=== PATIENT | male | born 1965 | race Caucasian/White ===

== ENCOUNTER 2023-08-24 18:39 | Inpatient (IN) ==
--- NOTE | 2023-08-24 19:55 | DR.GENAD ---
HPI Time Seen Time Seen by Provider: 08/24/23 19:54 PCP Primary Care Physician: [facility] in [place] Complaint/Symptoms Chief Complaint:: pt stated he was dx with pneumonia and copd n may has been on breathing treatments. also had shingles in may lessions are dry and he is having severe nerve pain. 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 Source History Provided: Patient Mode of Arrival Mode of Arrival: Ambulatory Timing Onset of Chief Complaint: 07/15/23 PMH PMH Past Medical History: No Past Surgical History: Yes Surgical History: Ortho Surgery Family History History of Family Medical Conditions: Yes Family Medical History: Diabetes Mellitus and PR Social History Does patient currently use any type of tobacco product: No Have you used tobacco products in the last 12 months: No Type of Tobacco Use: None Does any household member use tobacco: No Alcohol Use: Rarely Do you use any recreational Drugs:: No Lives With: Family Lives Where: Home Infectious screening In the last 2 months have you had wt loss of >10#?: NO Have you had fever, night sweats or hemotysis?: No Have you traveled outside the country in the last 6 months?: No Isolation: Standard PE Vital Signs Vitals: Vital Signs Temperature 97.8 F Pulse Rate 97 Pulse Rate 91 Pulse Rate 90 Pulse Rate 92 Pulse Rate 88 Pulse Rate 93 Pulse Rate 89 Pulse Rate 89 Pulse Rate 86 Pulse Rate 85 Pulse Rate 91 Pulse Rate 85 Pulse Rate 90 Pulse Rate 83 Pulse Rate 85 Pulse Rate 88 Pulse Rate 100 Respiratory Rate 23 Respiratory Rate 26 Respiratory Rate 19 Respiratory Rate 20 Respiratory Rate 29 Respiratory Rate 22 Respiratory Rate 11 Respiratory Rate 17 Respiratory Rate 12 Respiratory Rate 18 Respiratory Rate 18 Respiratory Rate 18 Respiratory Rate 27 Respiratory Rate 16 Respiratory Rate 13 Respiratory Rate 26 Respiratory Rate 18 Blood Pressure 129/82 Blood Pressure 129/82 Blood Pressure 131/88 Blood Pressure 125/84 Blood Pressure 130/77 O2 Sat by Pulse Oximetry 99 O2 Sat by Pulse Oximetry 97 O2 Sat by Pulse Oximetry 97 O2 Sat by Pulse Oximetry 96 O2 Sat by Pulse Oximetry 96 O2 Sat by Pulse Oximetry 97 O2 Sat by Pulse Oximetry 91 O2 Sat by Pulse Oximetry 89 O2 Sat by Pulse Oximetry 96 O2 Sat by Pulse Oximetry 96 O2 Sat by Pulse Oximetry 96 O2 Sat by Pulse Oximetry 99 O2 Sat by Pulse Oximetry 98 O2 Sat by Pulse Oximetry 98 O2 Sat by Pulse Oximetry 99 O2 Sat by Pulse Oximetry 98 O2 Sat by Pulse Oximetry 96 ROR Labs Reviewed 08/24/23 19:45 08/24/23 19:45 Laboratory: WBC 12.2 X10^3/uL (3.6-10.0) H 08/24/23 19:45 RBC 4.64 X10^6/uL (4.7-6.0) L 08/24/23 19:45 Hgb 13.9 g/dL (13.5-18.0) 08/24/23 19:45 Hct 41.5 % (42.0-54.0) L 08/24/23 19:45 MCV 89.3 fL (80.0-100.0) 08/24/23 19:45 MCH 29.9 pg (27.0-34.0) 08/24/23 19:45 MCHC 33.5 g/dL (33.0-35.0) 08/24/23 19:45 RDW 14.7 % (11.6-16.5) 08/24/23 19:45 Plt Count 504 X10^3/uL (150.0-450.0) H 08/24/23 19:45 MPV 6.6 fL (7.4-11.0) L 08/24/23 19:45 Neut % (Auto) 74.6 % (42.0-75.0) 08/24/23 19:45 Lymph % (Auto) 12.9 % (21.0-51.0) L 08/24/23 19:45 Grainger % (Auto) 8.5 % (0.0-13.0) 08/24/23 19:45 Eos % (Auto) 3.2 % (0.9-2.9) H 08/24/23 19:45 Baso % (Auto) 0.8 % (0.2-1.0) 08/24/23 19:45 Neut # (Auto) 9.1 x10^3/uL (2.2-4.8) H 08/24/23 19:45 Lymph # (Auto) 1.6 X10^3/uL (1.3-2.9) 08/24/23 19:45 Grainger # (Auto) 1.0 x10^3/uL (0.3-0.8) H 08/24/23 19:45 Eos # (Auto) 0.4 x10^3/uL (0.0-0.2) H 08/24/23 19:45 Baso # (Auto) 0.1 X10^3/uL (0.0-0.1) 08/24/23 19:45 Absolute Nucleated RBC 0.1 /100WBC 08/24/23 19:45 D-Dimer 5.23 ug/ml (0.0-0.57) H 08/24/23 19:45 Sodium 135 mmol/L (136-145) L 08/24/23 19:45 Corrected Sodium TNP 08/24/23 19:45 Potassium 4.0 mmol/L (3.5-5.1) 08/24/23 19:45 Chloride 100 mmol/L (98-107) 08/24/23 19:45 Carbon Dioxide 30.2 mmol/L (21-32) 08/24/23 19:45 BUN 12 mg/dL (7-18) 08/24/23 19:45 Creatinine 0.78 mg/dL (0.70-1.30) 08/24/23 19:45 Est GFR (MDRD) Af Amer > 60 (>60) 08/24/23 19:45 Est GFR (MDRD) Non-Af > 60 (>60) 08/24/23 19:45 Glucose 104 mg/dL (65-99) H 08/24/23 19:45 Calcium 8.8 mg/dL (8.5-10.1) 08/24/23 19:45 Corrected Calcium 9.7 mg/dL (8.5-10.1) 08/24/23 19:45 Total Bilirubin 0.30 mg/dL (0.2-1.0) 08/24/23 19:45 AST 25 Units/L (15-37) 08/24/23 19:45 ALT 39 Units/L (12-78) 08/24/23 19:45 Alkaline Phosphatase 80 Units/L (46-116) 08/24/23 19:45 B-Natriuretic Peptide 58.7 pg/mL (0-79) 08/24/23 19:45 Total Protein 7.6 g/dL (6.4-8.2) 08/24/23 19:45 Albumin 2.9 g/dL (3.4-5.0) L 08/24/23 19:45 Globulin 4.7 g/dL (2.5-4.5) H 08/24/23 19:45 Albumin/Globulin Ratio 0.6 Ratio (1.1-2.1) L 08/24/23 19:45 TSH 3rd Generation 1.682 uIU/mL (0.358-3.74) 08/24/23 19:45 Specimen Type Clean catch urine 08/24/23 21:16 Urine Color Yellow (YELLOW) 08/24/23 21:16 Urine Appearance Clear (CLEAR) 08/24/23 21:16 Urine pH 6.0 (5.0 - 8.0) 08/24/23 21:16 Ur Specific [place] 1.015 (1.000-1.030) 08/24/23 21:16 Urine Protein Negative (NEGATIVE) 08/24/23 21:16 Urine Glucose (UA) Negative (NEGATIVE) 08/24/23 21:16 Urine Ketones Negative (NEGATIVE) 08/24/23 21:16 Urine Blood Negative (NEGATIVE) 08/24/23 21:16 Urine Nitrite Negative (NEGATIVE) 08/24/23 21:16 Urine Bilirubin Negative (NEGATIVE) 08/24/23 21:16 Urine Urobilinogen 1+ (NORMAL) 08/24/23 21:16 Ur Leukocyte Esterase Negative (NEGATIVE) 08/24/23 21:16 Urine RBC None seen /HPF (0-3) 08/24/23 21:16 Urine WBC None seen /HPF (0-5) 08/24/23 21:16 Ur Squamous Epith Cells Rare /HPF (NEGATIVE) 08/24/23 21:16 Urine Bacteria Negative /HPF (NEGATIVE) 08/24/23 21:16 Ur Culture Indicated? No/not indicated 08/24/23 21:16 SARS-CoV-2 (PCR) Negative (NEGATIVE) 08/24/23 21:42 Influenza Type A (PCR) Negative (NEGATIVE) 08/24/23 21:42 Influenza Type B (PCR) Negative (NEGATIVE) 08/24/23 21:42 RSV (PCR) Negative (NEGATIVE) 08/24/23 21:42 Opioid Opioid Risk Tool Total: 0 Total Score Risk Category: Low Risk Copyright: Lebron KIM predicting aberrant behaviors Discharge Plan Diagnosis Discharge Problem: Pneumonia, Cough, persistent, Chest wall pain, Abnormal weight loss, Thoracic aortic aneurysm (TAA), Joint pain Discharge Plan Patient Disposition: ADMITTED INPATIENT Condition: Stable Discharge Comment: Return to ER if worse. Orders to Discharge Patient Discharge Orders: Transfer (Routine); Ordered 08/24/23 Ordered By: ARLEEN INMAN
[2023-08-24 20:02] LABS: BASOPHILS # (AUTO) 0.1 X10^3/uL (0.0-0.1); BASOPHILS % (AUTO) 0.8 % (0.2-1.0); EOSINOPHILS # (AUTO) 0.4 x10^3/uL (0.0-0.2); EOSINOPHILS % (AUTO) 3.2 % (0.9-2.9); HEMATOCRIT 41.5 % (42.0-54.0); HEMOGLOBIN 13.9 g/dL (13.5-18.0); LYMPHOCYTES # (AUTO) 1.6 X10^3/uL (1.3-2.9); LYMPHOCYTES % (AUTO) 12.9 % (21.0-51.0); MEAN CORPUSCULAR HEMOGLOBIN 29.9 pg (27.0-34.0); MEAN CORPUSCULAR HGB CONC 33.5 g/dL (33.0-35.0); MEAN CORPUSCULAR VOLUME 89.3 fL (80.0-100.0); MEAN PLATELET VOLUME 6.6 fL (7.4-11.0); MONOCYTES % (AUTO) 8.5 % (0.0-13.0); NEUTROPHILS # (AUTO) 9.1 x10^3/uL (2.2-4.8); NEUTROPHILS % (AUTO) 74.6 % (42.0-75.0); PLATELET COUNT 504 X10^3/uL (150.0-450.0); RED BLOOD COUNT 4.64 X10^6/uL (4.7-6.0); RED CELL DISTRIBUTION WIDTH 14.7 % (11.6-16.5); WHITE BLOOD COUNT 12.2 X10^3/uL (3.6-10.0)
[2023-08-24 20:09] LABS: ALANINE AMINOTRANSFERASE 39 Units/L (12-78); ALBUMIN 2.9 g/dL (3.4-5.0); ALKALINE PHOSPHATASE 80 Units/L (46-116); ASPARTATE AMINO TRANSFERASE 25 Units/L (15-37); BLOOD UREA NITROGEN 12 mg/dL (7-18); CALCIUM 8.8 mg/dL (8.5-10.1); CARBON DIOXIDE 30.2 mmol/L (21-32); CHLORIDE 100 mmol/L (98-107); COR CA(FOR HYPOALB) 9.7 mg/dL (8.5-10.1); CREATININE 0.78 mg/dL (0.70-1.30); GLUCOSE 104 mg/dL (65-99); SODIUM 135 mmol/L (136-145); TOTAL PROTEIN 7.6 g/dL (6.4-8.2); eGFR NON BLACK RACES > 60 (>60)
[2023-08-24] MEDS ORDERED: OMNIPAQUE 350 mg/mL 100 mL BTL 100 ML ONE (20:30)
[2023-08-24 21:24] LABS: BILIRUBIN,URINE NEGATIVE (NEGATIVE); BLOOD/HEMOGLOBIN,URINE NEGATIVE (NEGATIVE); GLUCOSE, URINE NEGATIVE (NEGATIVE); KETONES,URINE NEGATIVE (NEGATIVE); LEUKOCYTE ESTERASE ,URINE NEGATIVE (NEGATIVE); NITRITES,URINE NEGATIVE (NEGATIVE); PROTEIN,URINE NEGATIVE (NEGATIVE); UROBILINOGEN,URINE 1+ (NORMAL)
[2023-08-24 21:27] LABS: APPEARANCE,URINE CLEAR (CLEAR); BACTERIA,URINE NEGATIVE /HPF (NEGATIVE); COLOR,URINE YELLOW (YELLOW); RBC,URINE NONE SEEN /HPF (0-3); SQUAMOUS EPITHELIAL CELL,UR RARE /HPF (NEGATIVE)
--- NOTE | 2023-08-24 21:35 | CT ---
EXAM: CTA CHEST WITH INTRAVENOUS CONTRAST HISTORY: Shortness of breath. Chest pain. Elevated D-dimer. TECHNIQUE: Spiral axial CT images are obtained through the chest without the administration of intrav enous contrast. Additional sagittal and coronal reformatted images are reconstructed. DOSIMETRY: Total DLP 179.85 mGycm; CTDI 22.53 mGy COMPARISON: None available. FINDINGS: CARDIOVASCULAR: There is borderline cardiomegaly with four-chamber enlargement. There is approximate ly 4 cm fusiform aneurysmal dilatation of the ascending thoracic aorta. No aortic dissection or rupt ure is seen. No pericardial effusion is seen. MEDIASTINUM AND UMER: There is mediastinal and hilar lymphadenopathy, in keeping with reactive lympha denopathy. No mass lesion, or abnormal fluid collection is seen. LUNGS: There are extensive bilateral patchy groundglass lung parenchymal infiltrates, especially in t he peripheral lung zones and lower lung collins, in keeping with acute pneumonia (e.g. COVID-pneumonia ) in the appropriate clinical setting; nonspecific finding; DDx includes airspace disease (with fill ing of alveoli, e.g. with fluid, pus, hemorrhage, or tumor cells) and interstitial lung disease (e.g. interstitial edema, interstitial pneumonia, and interstitial fibrosis). Clinical correlation is advi sed. Correlation with a high resolution noncontrast chest CT may be beneficial. There is no lung mass , lung nodule, or endobronchial obstructing lesion seen. No pleural effusion or pneumothorax is evid ent. CHEST WALL: There are no chest wall lesions seen. There is chronic appearing mild anterior wedge com pression fracture deformity of the T6 vertebral body and chronic appearing severe anterior wedge comp ression fracture of the T11 vertebral body. The visualized bony structures are otherwise within norm al limits. No axillary lymphadenopathy is noted. UPPER ABDOMEN: Limited views through the upper abdomen demonstrate no gross acute abnormality. IMPRESSION: 1. Borderline cardiomegaly with four-chamber enlargement. 2. Approximately 4 cm fusiform aneurysmal dilatation of the ascending thoracic aorta; no aortic diss ection or rupture is seen. 3. Extensive bilateral patchy groundglass lung parenchymal infiltrates, especially in the peripheral lung zones and lower lung collins, in keeping with acute pneumonia (e.g. COVID-pneumonia) in the appr opriate clinical setting; consider mild CHF in the appropriate clinical setting; nonspecific finding; see DDx above. 4. Mediastinal and hilar lymphadenopathy, in keeping with reactive lymphadenopathy; DDx includes gra nulomatous lymphadenopathy (e.g advanced stage sarcoidosis in the setting of extensive chronic inters titial infiltrates or fibrosis). 5. Chronic appearing mild anterior wedge compression fracture deformity of the T6 vertebral body and chronic appearing severe anterior wedge compression fracture of the T11 vertebral body. THIS IS AN ELECTRONICALLY VERIFIED FINAL REPORT 08/24/2023 9:31 PM - Electronically signed by Danisha Thomas MD
[2023-08-24] MEDS: MORPHINE SULFATE INJ 4 MG IVP ONE (21:51)
[2023-08-24] MEDS: ZOFRAN INJ 4 MG VIAL IVP ONE (21:51)
[2023-08-24] MEDS: LEVAQUIN PREMIX IV 750 MG 750 MG/150 ML BAG IV ONE (23:18)
--- NOTE | 2023-08-25 00:16 | RAD ---
EXAM: CHEST, 1 VIEW HISTORY: cough with shortness of breath; pt stated he was dx with pneumonia and copd n may has been on breat king treatments. COMPARISON: 07/15/2023 FINDINGS: The trachea is midline. The cardiac silhouette is unremarkable. Chronic appearing increased interst itial markings throughout the lungs similar to prior study. Lungs are clear of acute consolidation. No pleural effusion or pneumothorax.. The bony thorax is unremarkable. IMPRESSION: No acute cardiopulmonary disease. THIS IS AN ELECTRONICALLY VERIFIED FINAL REPORT 08/25/2023 12:13 AM - Electronically signed by Ernesto Jonas MD
[2023-08-25] MEDS: DUONEB 0.5 MG/3 MG (3 mL) NEB SCH (00:54)
[2023-08-25] MEDS: TUSSIONEX PENNKINETIC SUSP PO PRN (00:57)
[2023-08-25] MEDS: NS 1,000 ML IV 1,000 ML IV SCH (00:57)
[2023-08-25 05:57] LABS: BASOPHILS # (AUTO) 0.1 X10^3/uL (0.0-0.1); BASOPHILS % (AUTO) 0.9 % (0.2-1.0); EOSINOPHILS # (AUTO) 0.4 x10^3/uL (0.0-0.2); EOSINOPHILS % (AUTO) 3.5 % (0.9-2.9); HEMATOCRIT 37.2 % (42.0-54.0); HEMOGLOBIN 12.3 g/dL (13.5-18.0); LYMPHOCYTES # (AUTO) 1.8 X10^3/uL (1.3-2.9); LYMPHOCYTES % (AUTO) 15.8 % (21.0-51.0); MEAN CORPUSCULAR HEMOGLOBIN 29.5 pg (27.0-34.0); MEAN CORPUSCULAR HGB CONC 33.2 g/dL (33.0-35.0); MEAN CORPUSCULAR VOLUME 88.9 fL (80.0-100.0); MEAN PLATELET VOLUME 6.3 fL (7.4-11.0); MONOCYTES # (AUTO) 1.1 x10^3/uL (0.3-0.8); MONOCYTES % (AUTO) 9.7 % (0.0-13.0); NEUTROPHILS # (AUTO) 7.8 x10^3/uL (2.2-4.8); NEUTROPHILS % (AUTO) 70.1 % (42.0-75.0); PLATELET COUNT 434 X10^3/uL (150.0-450.0); RED BLOOD COUNT 4.19 X10^6/uL (4.7-6.0); RED CELL DISTRIBUTION WIDTH 14.6 % (11.6-16.5); WHITE BLOOD COUNT 11.1 X10^3/uL (3.6-10.0)
[2023-08-25 06:13] LABS: ALANINE AMINOTRANSFERASE 32 Units/L (12-78); ALBUMIN 2.4 g/dL (3.4-5.0); ALKALINE PHOSPHATASE 65 Units/L (46-116); ASPARTATE AMINO TRANSFERASE 19 Units/L (15-37); BLOOD UREA NITROGEN 7 mg/dL (7-18); CALCIUM 8.6 mg/dL (8.5-10.1); CARBON DIOXIDE 29.5 mmol/L (21-32); CHLORIDE 100 mmol/L (98-107); COR CA(FOR HYPOALB) 9.9 mg/dL (8.5-10.1); CREATININE 0.71 mg/dL (0.70-1.30); GLUCOSE 95 mg/dL (65-99); POTASSIUM 3.9 mmol/L (3.5-5.1); SODIUM 135 mmol/L (136-145); TOTAL PROTEIN 6.6 g/dL (6.4-8.2); URIC ACID 3.6 mg/dL (3.5-7.2); eGFR NON BLACK RACES > 60 (>60)
[2023-08-25] MEDS ORDERED: CONSULT PHARMACY - POTASSIUM & MAGNESIUM XX SCH (07:00)
[2023-08-25 07:39] VITALS: BMI 21.2
[2023-08-25] MEDS: PULMICORT NEB TX 0.5 MG NEB SCH (08:21)
[2023-08-25] MEDS ORDERED: LEVAQUIN PREMIX IV 750 MG 750 MG/150 ML BAG IV SCH (09:00)
[2023-08-25] MEDS: ROBITUSSIN DM PO SCH (10:16)
[2023-08-25] MEDS: K-DUR TAB 20 MEQ PO SCH (10:17)
[2023-08-25] MEDS: MAG-OX TAB PO SCH (10:17)
--- NOTE | 2023-08-25 12:17 | DR.H&P ---
H&P History & Physical for Day of: H&P Date: 08/25/23 Chief Complaint Chief Complaint: Cough, Shortness of breath History of Present Illness History of Present Illness: Patient is a 58-year-old male presenting with cough and shortness of breath that has been getting worse over the past week. He reports that for the over a month he has been battling cough and was treated before for pneumonia. Labs/imaging: WBC 11.1, hemoglobin 12.3, platelets 434, sodium 135, potassium 3.9, creatinine 0.71, glucose 95, D-dimer 5.23, UA n egative, blood culture pending, AIT pending, COVID/flu/RSV negative, chest x-ray revealed no acute cardiopulmonary findings, CTA of the chest was obtained that revealed 1. Borderline cardiomegaly with four-chamber enlargement.2. Approximately 4 cm fusiform aneurysmal dilatation of the ascending tthoracic aorta; no aortic dissection or rupture is seen. . Extensive bilateral patchy groundglass lung parenchymal infiltrates, especially in the peripheral lung zones and lower lung collins, in keeping with acute pneumonia (e.g. COVID- pneumonia) in the appropriate clinical setting; consider mild CHF in the appropriate clinical setting; nonspecific finding; see DDx above. 4. Mediastinal and hilar lymphadenopathy, in keeping with reactive lymphadenopathy; DDx includes granulomatous lymphadenopathy (e.g advanced stage sarcoidosis in the setting of extensive chronic interstitial infiltrates or fibrosis). 5. Chronic appearing mild anterior wedge compression fracture deformity of the T6 vertebral body and chronic appearing severe anterior wedge compression fracture of the T11 vertebral body. Patient was admitted for pneumonia and COPD exacerbation. Discussed the different results seen on CTA of the chest with patient. He will need to be followed outpatient for his aneurysm of the ascending thoracic aorta. He can also follow-up with Ortho for compression fractures of his thoracic vertebrae. There is concern for possible sarcoidosis, He will need follow-up outpatient with pulmonology. Will order labs, PATRICE, CRP, ESR, Quantiferon gold, Ekg, and echo. Patient is currently on IV fluids normal saline at 75 mL/h. IV antibiotics Levaquin. Scheduled bronchodilators. He is currently requiring 2 L nasal cannula supplemental oxygen. Wean/titrate as tolerated. Continue to closely monitor and follow-up labs/imaging. Time spent for clinical assessment, reviewing labs/imaging, physical exam, decision making and documentation greater than 45 mins. Past Surgical History Surgical History: Ortho Surgery Family History Family Medical History: Diabetes Mellitus and Coronary Artery Disease Social History Does patient currently use any type of tobacco product: No Have you used tobacco products in the last 12 months: No Type of Tobacco Use: None Does any household member use tobacco: No Alcohol Use: Occasionally Drug Use: None Medications Home Medications: Home Medications Medication Instructions Recorded Confirmed Type albuterol sulfate 2.5 mg/3 mL 2.5 mg Q4H PRN 08/24/23 08/24/23 History (0.083 %) solution for nebulization diclofenac sodium 75 mg 75 mg PO BID PRN 08/24/23 08/24/23 History tablet,delayed release gabapentin 100 mg capsule 100 mg PO BID 08/24/23 08/24/23 History ipratropium bromide 0.02 % 2.5 ml Q6H PRN 08/24/23 08/24/23 History solution for inhalation Allergies Allergies Allergy/AdvReac Type Severity Reaction Status Date / Time Penicillins Allergy Verified 08/24/23 19:02 Labs 08/25/23 05:50 08/25/23 05:50 Labs: Laboratory WBC 11.1 X10^3/uL (3.6-10.0) H 08/25/23 05:50 RBC 4.19 X10^6/uL (4.7-6.0) L 08/25/23 05:50 Hgb 12.3 g/dL (13.5-18.0) L 08/25/23 05:50 Hct 37.2 % (42.0-54.0) L 08/25/23 05:50 MCV 88.9 fL (80.0-100.0) 08/25/23 05:50 MCH 29.5 pg (27.0-34.0) 08/25/23 05:50 MCHC 33.2 g/dL (33.0-35.0) 08/25/23 05:50 RDW 14.6 % (11.6-16.5) 08/25/23 05:50 Plt Count 434 X10^3/uL (150.0-450.0) 08/25/23 05:50 MPV 6.3 fL (7.4-11.0) L 08/25/23 05:50 Neut % (Auto) 70.1 % (42.0-75.0) 08/25/23 05:50 Lymph % (Auto) 15.8 % (21.0-51.0) L 08/25/23 05:50 Collin % (Auto) 9.7 % (0.0-13.0) 08/25/23 05:50 Eos % (Auto) 3.5 % (0.9-2.9) H 08/25/23 05:50 Baso % (Auto) 0.9 % (0.2-1.0) 08/25/23 05:50 Neut # (Auto) 7.8 x10^3/uL (2.2-4.8) H 08/25/23 05:50 Lymph # (Auto) 1.8 X10^3/uL (1.3-2.9) 08/25/23 05:50 Collin # (Auto) 1.1 x10^3/uL (0.3-0.8) H 08/25/23 05:50 Eos # (Auto) 0.4 x10^3/uL (0.0-0.2) H 08/25/23 05:50 Baso # (Auto) 0.1 X10^3/uL (0.0-0.1) 08/25/23 05:50 Absolute Nucleated RBC 0.1 /100WBC 08/25/23 05:50 D-Dimer 5.23 ug/ml (0.0-0.57) H 08/24/23 19:45 Sodium 135 mmol/L (136-145) L 08/25/23 05:50 Corrected Sodium TNP 08/25/23 05:50 Potassium 3.9 mmol/L (3.5-5.1) 08/25/23 05:50 Chloride 100 mmol/L (98-107) 08/25/23 05:50 Carbon Dioxide 29.5 mmol/L (21-32) 08/25/23 05:50 BUN 7 mg/dL (7-18) 08/25/23 05:50 Creatinine 0.71 mg/dL (0.70-1.30) 08/25/23 05:50 Est GFR (MDRD) Af Amer > 60 (>60) 08/25/23 05:50 Est GFR (MDRD) Non-Af > 60 (>60) 08/25/23 05:50 Glucose 95 mg/dL (65-99) 08/25/23 05:50 Uric Acid 3.6 mg/dL (3.5-7.2) 08/25/23 05:50 Calcium 8.6 mg/dL (8.5-10.1) 08/25/23 05:50 Corrected Calcium 9.9 mg/dL (8.5-10.1) 08/25/23 05:50 Magnesium 1.7 mg/dL (2.0-2.9) L 08/25/23 05:50 Total Bilirubin 0.50 mg/dL (0.2-1.0) 08/25/23 05:50 AST 19 Units/L (15-37) 08/25/23 05:50 ALT 32 Units/L (12-78) 08/25/23 05:50 Alkaline Phosphatase 65 Units/L (46-116) 08/25/23 05:50 B-Natriuretic Peptide 58.7 pg/mL (0-79) 08/24/23 19:45 Total Protein 6.6 g/dL (6.4-8.2) 08/25/23 05:50 Albumin 2.4 g/dL (3.4-5.0) L 08/25/23 05:50 Globulin 4.2 g/dL (2.5-4.5) 08/25/23 05:50 Albumin/Globulin Ratio 0.6 Ratio (1.1-2.1) L 08/25/23 05:50 TSH 3rd Generation 1.682 uIU/mL (0.358-3.74) 08/24/23 19:45 Specimen Type Clean catch urine 08/24/23 21:16 Urine Color Yellow (YELLOW) 08/24/23 21:16 Urine Appearance Clear (CLEAR) 08/24/23 21:16 Urine pH 6.0 (5.0 - 8.0) 08/24/23 21:16 Ur Specific [place] 1.015 (1.000-1.030) 08/24/23 21:16 Urine Protein Negative (NEGATIVE) 08/24/23 21:16 Urine Glucose (UA) Negative (NEGATIVE) 08/24/23 21:16 Urine Ketones Negative (NEGATIVE) 08/24/23 21:16 Urine Blood Negative (NEGATIVE) 08/24/23 21:16 Urine Nitrite Negative (NEGATIVE) 08/24/23 21:16 Urine Bilirubin Negative (NEGATIVE) 08/24/23 21:16 Urine Urobilinogen 1+ (NORMAL) 08/24/23 21:16 Ur Leukocyte Esterase Negative (NEGATIVE) 08/24/23 21:16 Urine RBC None seen /HPF (0-3) 08/24/23 21:16 Urine WBC None seen /HPF (0-5) 08/24/23 21:16 Ur Squamous Epith Cells Rare /HPF (NEGATIVE) 08/24/23 21:16 Urine Bacteria Negative /HPF (NEGATIVE) 08/24/23 21:16 Ur Culture Indicated? No/not indicated 08/24/23 21:16 SARS-CoV-2 (PCR) Negative (NEGATIVE) 08/24/23 21:42 Influenza Type A (PCR) Negative (NEGATIVE) 08/24/23 21:42 Influenza Type B (PCR) Negative (NEGATIVE) 08/24/23 21:42 RSV (PCR) Negative (NEGATIVE) 08/24/23 21:42 Review of Systems Constitutional: Weakness Eyes: No Symptoms Reported ENT: No Symptoms Reported Respiratory: Cough and Shortness of Breath Cardiovascular: No Symptoms Reported Gastrointestinal: No Symptoms Reported Genitourinary: No Symptoms Reported Musculoskeletal: No Symptoms Reported Skin: No Symptoms Reported Neurological: No Symptoms Reported Physical Exam Vital Signs: Vital Signs Temperature 98.2 F Pulse Rate [Right] 89 Pulse Rate 90 Respiratory Rate 20 Blood Pressure [Right Arm] 139/91 O2 Sat by Pulse Oximetry 98 O2 Sat by Pulse Oximetry 96 Oriented: Normal Eyes: Normal Ear: Normal Nose: Normal Throat: Normal Respiratory: Clear Throughout Cardiovascular: Normal : Normal Auscultation: Bowel Sounds: Normal Palpation: Normal Tenderness: Normal Skin: Normal Musculoskeletal: Normal Psychiatric: Normal Mood Description: Calm and Appropriate Affect: Normal Speech Pattern: Clear and Appropriate Assessment/Plan (1) Pneumonia: Status: Acute Plan: IV levaquin AIT pending (2) Thoracic aortic aneurysm (TAA): Status: Acute Plan: Referral cardiology outpatient (3) Compression fracture of body of thoracic vertebra: Status: Acute Plan: Chronic, referral ortho outpatient (4) COPD (chronic obstructive pulmonary disease): Status: Acute Plan: Scheduled bronchodilators. (5) Hilar lymphadenopathy: Status: Acute Plan: Referral pulmonology outpatient Review H&P Reviewed: Yes Patient was examined?: Yes
--- NOTE | 2023-08-25 12:32 | EKG ---
Test Reason : shortness of breath Blood Pressure : */* mmHG Vent. Rate : 88 BPM Atrial Rate : 88 BPM P-R Int : 182 ms QRS Dur : 86 ms QT Int : 354 ms P-R-T Axes : * 4 12 degrees QTc Int : 428 ms Normal sinus rhythm Normal ECG No previous ECGs available Confirmed by Gideon Bansal MD ([id number]) on 08/26/2023 7:43:58 AM Referred By: Confirmed By: Gideon Bansal MD
[2023-08-25] MEDS ORDERED: TYLENOL 325 MG TAB PO PRN (14:10)
[2023-08-25] MEDS ORDERED: MORPHINE SULFATE INJ 2 MG INJ IVP PRN (14:10)
[2023-08-25] MEDS: NORCO 5/325 MG TAB PO PRN (15:51)
[2023-08-25] MEDS: LEVAQUIN PREMIX IV 750 MG 750 MG/150 ML BAG IV SCH (20:09)
[2023-08-25] MEDS: ULTRAM PO PRN (20:36)
[2023-08-26 06:18] LABS: BASOPHILS # (AUTO) 0.1 X10^3/uL (0.0-0.1); BASOPHILS % (AUTO) 1.1 % (0.2-1.0); EOSINOPHILS # (AUTO) 0.3 x10^3/uL (0.0-0.2); EOSINOPHILS % (AUTO) 2.4 % (0.9-2.9); HEMATOCRIT 36.6 % (42.0-54.0); HEMOGLOBIN 12.4 g/dL (13.5-18.0); LYMPHOCYTES # (AUTO) 1.5 X10^3/uL (1.3-2.9); LYMPHOCYTES % (AUTO) 14.5 % (21.0-51.0); MEAN CORPUSCULAR HEMOGLOBIN 30.3 pg (27.0-34.0); MEAN CORPUSCULAR HGB CONC 33.9 g/dL (33.0-35.0); MEAN CORPUSCULAR VOLUME 89.4 fL (80.0-100.0); MEAN PLATELET VOLUME 6.9 fL (7.4-11.0); MONOCYTES # (AUTO) 1.1 x10^3/uL (0.3-0.8); MONOCYTES % (AUTO) 10.4 % (0.0-13.0); NEUTROPHILS # (AUTO) 7.6 x10^3/uL (2.2-4.8); NEUTROPHILS % (AUTO) 71.6 % (42.0-75.0); PLATELET COUNT 418 X10^3/uL (150.0-450.0); RED BLOOD COUNT 4.09 X10^6/uL (4.7-6.0); RED CELL DISTRIBUTION WIDTH 14.6 % (11.6-16.5); WHITE BLOOD COUNT 10.6 X10^3/uL (3.6-10.0)
[2023-08-26 06:33] LABS: ALANINE AMINOTRANSFERASE 33 Units/L (12-78); ALBUMIN 2.4 g/dL (3.4-5.0); ALKALINE PHOSPHATASE 68 Units/L (46-116); ASPARTATE AMINO TRANSFERASE 19 Units/L (15-37); BLOOD UREA NITROGEN 10 mg/dL (7-18); CALCIUM 8.6 mg/dL (8.5-10.1); CARBON DIOXIDE 29.3 mmol/L (21-32); CHLORIDE 99 mmol/L (98-107); COR CA(FOR HYPOALB) 9.9 mg/dL (8.5-10.1); GLUCOSE 92 mg/dL (65-99); POTASSIUM 4.2 mmol/L (3.5-5.1); SODIUM 133 mmol/L (136-145); TOTAL PROTEIN 6.8 g/dL (6.4-8.2); eGFR NON BLACK RACES > 60 (>60)
[2023-08-26] MEDS: SOLU-Medrol 40 MG VIAL IVP SCH (09:33)
[2023-08-26] MEDS: LOVENOX INJ 40 MG SYR SC SCH (09:34)
[2023-08-26] MEDS: MAGNESIUM SULFATE 1 GRAM/100 mL PREMIX 1 G/100 ML BAG IV SCH (10:47)
--- NOTE | 2023-08-26 11:38 | PCM.PROG ---
Progress Note Progress Note for Day of Date of Exam: 08/26/23 Subjective Subjective: Patient seen at bedside, no acute events overnight. 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 He is currently on 4L NC. He reports feeling slightly better. He reports normal appetite. He has been having worsening SOB, generalized weakness and weight loss for the past 2 months. He has outpatient f/u with Rheum and GI. CT-chest done on admission is concerning for infectious process superimposed on ILD. Patient's brother also had ILD. He is currently on Levaquin and nebs. Labs/imaging reviewed: -WBC 10.6 Hgb 12.4 Ma.7 ESR:45 CRP:48 TB gold pending -Sputum Cx: pending Plan: Wean O2 as tolerated to keep sats > 92%, continue nebs and IS. Continue IV levaquin, will add Solmuedrol. Follow pending labs and cultures. Continue gentle hydration. Echo pending. Continue home medications. Replace electrolytes as per protocol. Patient was also noted to have 4cm ascending thoracic aneurysm that will need be monitored outpatient. Continue pain control for thoracic compression fracture and multiple joint pain including b/l hands. He will follow-up with Ortho for compression fractures of his thoracic vertebrae. There is concern for possible sarcoidosis/ILD, he will need follow-up outpatient with pulmonology. Monitor AM labs/imaging. Time spent for clinical assessment, reviewing labs/imaging, physical exam, decision making and documentation greater than 45 mins. Past Medical Family Social History Allergies: Allergies Penicillins Allergy (Verified 08/24/23 19:02) Vital Signs and I&O's Vital Signs: Vital Signs Temperature 97.9 F Temperature 98.7 F Pulse Rate [Right] 92 Pulse Rate [Right] 73 Pulse Rate 90 Pulse Rate 82 Respiratory Rate 20 Respiratory Rate 18 Respiratory Rate 20 Respiratory Rate 18 Blood Pressure [Right Arm] 123/80 Blood Pressure [Right Arm] 136/89 O2 Sat by Pulse Oximetry 99 O2 Sat by Pulse Oximetry 100 O2 Sat by Pulse Oximetry 99 O2 Sat by Pulse Oximetry 100 Intake and Output: Intake & Output 08/23/23 08/24/23 08/25/23 08/26/23 23:59 23:59 23:59 23:59 Intake Total 2729 / 2729 737 / 737 Output Total 1200 / 1200 350 / 350 Balance 1529 / 1529 387 / 387 Physical Exam Oriented: Normal Eyes: Normal Ear: Normal Nose: Normal Throat: Normal Respiratory: Generalized, Rales and Rhonchi Cardiovascular: Normal Auscultation: Bowel Sounds: Normal Palpation: Normal Tenderness: Normal Skin: Normal Musculoskeletal: Normal Psychiatric: Normal Mood Description: Calm and Appropriate Affect: Normal Speech Pattern: Clear and Appropriate Laboratory and Diagnostics 08/26/23 05:22 08/26/23 05:22 Labs: 08/25/23 21:20 Sputum - Expectorated Sputum Sputum Culture - Preliminary 08/25/23 21:20 Sputum - Expectorated Sputum - Final Laboratory WBC 10.6 X10^3/uL (3.6-10.0) H 08/26/23 05:22 RBC 4.09 X10^6/uL (4.7-6.0) L 08/26/23 05:22 Hgb 12.4 g/dL (13.5-18.0) L 08/26/23 05:22 Hct 36.6 % (42.0-54.0) L 08/26/23 05:22 MCV 89.4 fL (80.0-100.0) 08/26/23 05:22 MCH 30.3 pg (27.0-34.0) 08/26/23 05:22 MCHC 33.9 g/dL (33.0-35.0) 08/26/23 05:22 RDW 14.6 % (11.6-16.5) 08/26/23 05:22 Plt Count 418 X10^3/uL (150.0-450.0) 08/26/23 05:22 MPV 6.9 fL (7.4-11.0) L 08/26/23 05:22 Neut % (Auto) 71.6 % (42.0-75.0) 08/26/23 05:22 Lymph % (Auto) 14.5 % (21.0-51.0) L 08/26/23 05:22 Hart % (Auto) 10.4 % (0.0-13.0) 08/26/23 05:22 Eos % (Auto) 2.4 % (0.9-2.9) 08/26/23 05:22 Baso % (Auto) 1.1 % (0.2-1.0) H 08/26/23 05:22 Neut # (Auto) 7.6 x10^3/uL (2.2-4.8) H 08/26/23 05:22 Lymph # (Auto) 1.5 X10^3/uL (1.3-2.9) 08/26/23 05:22 Hart # (Auto) 1.1 x10^3/uL (0.3-0.8) H 08/26/23 05:22 Eos # (Auto) 0.3 x10^3/uL (0.0-0.2) H 08/26/23 05:22 Baso # (Auto) 0.1 X10^3/uL (0.0-0.1) 08/26/23 05:22 Absolute Nucleated RBC 0.0 /100WBC 08/26/23 05:22 ESR 45 MM/HOUR (0-15) H 08/25/23 12:47 D-Dimer 5.23 ug/ml (0.0-0.57) H 08/24/23 19:45 Sodium 133 mmol/L (136-145) L 08/26/23 05:22 Corrected Sodium TNP 08/26/23 05:22 Potassium 4.2 mmol/L (3.5-5.1) 08/26/23 05:22 Chloride 99 mmol/L (98-107) 08/26/23 05:22 Carbon Dioxide 29.3 mmol/L (21-32) 08/26/23 05:22 BUN 10 mg/dL (7-18) 08/26/23 05:22 Creatinine 0.70 mg/dL (0.70-1.30) 08/26/23 05:22 Est GFR (MDRD) Af Amer > 60 (>60) 08/26/23 05:22 Est GFR (MDRD) Non-Af > 60 (>60) 08/26/23 05:22 Glucose 92 mg/dL (65-99) 08/26/23 05:22 Uric Acid 3.6 mg/dL (3.5-7.2) 08/25/23 05:50 Calcium 8.6 mg/dL (8.5-10.1) 08/26/23 05:22 Corrected Calcium 9.9 mg/dL (8.5-10.1) 08/26/23 05:22 Magnesium 1.7 mg/dL (2.0-2.9) L 08/26/23 05:22 Total Bilirubin 0.30 mg/dL (0.2-1.0) 08/26/23 05:22 AST 19 Units/L (15-37) 08/26/23 05:22 ALT 33 Units/L (12-78) 08/26/23 05:22 Alkaline Phosphatase 68 Units/L (46-116) 08/26/23 05:22 Troponin I High Sens 4.6 ng/L (4.0-60.0) 08/25/23 12:47 C-Reactive Protein 48.80 mg/L (0-3.0) H 08/25/23 12:47 B-Natriuretic Peptide 58.7 pg/mL (0-79) 08/24/23 19:45 Total Protein 6.8 g/dL (6.4-8.2) 08/26/23 05:22 Albumin 2.4 g/dL (3.4-5.0) L 08/26/23 05:22 Globulin 4.4 g/dL (2.5-4.5) 08/26/23 05:22 Albumin/Globulin Ratio 0.5 Ratio (1.1-2.1) L 08/26/23 05:22 TSH 3rd Generation 1.682 uIU/mL (0.358-3.74) 08/24/23 19:45 Specimen Type Clean catch urine 08/24/23 21:16 Urine Color Yellow (YELLOW) 08/24/23 21:16 Urine Appearance Clear (CLEAR) 08/24/23 21:16 Urine pH 6.0 (5.0 - 8.0) 08/24/23 21:16 Ur Specific [place] 1.015 (1.000-1.030) 08/24/23 21:16 Urine Protein Negative (NEGATIVE) 08/24/23 21:16 Urine Glucose (UA) Negative (NEGATIVE) 08/24/23 21:16 Urine Ketones Negative (NEGATIVE) 08/24/23 21:16 Urine Blood Negative (NEGATIVE) 08/24/23 21:16 Urine Nitrite Negative (NEGATIVE) 08/24/23 21:16 Urine Bilirubin Negative (NEGATIVE) 08/24/23 21:16 Urine Urobilinogen 1+ (NORMAL) 08/24/23 21:16 Ur Leukocyte Esterase Negative (NEGATIVE) 08/24/23 21:16 Urine RBC None seen /HPF (0-3) 08/24/23 21:16 Urine WBC None seen /HPF (0-5) 08/24/23 21:16 Ur Squamous Epith Cells Rare /HPF (NEGATIVE) 08/24/23 21:16 Urine Bacteria Negative /HPF (NEGATIVE) 08/24/23 21:16 Ur Culture Indicated? No/not indicated 08/24/23 21:16 SARS-CoV-2 (PCR) Negative (NEGATIVE) 08/24/23 21:42 Influenza Type A (PCR) Negative (NEGATIVE) 08/24/23 21:42 Influenza Type B (PCR) Negative (NEGATIVE) 08/24/23 21:42 RSV (PCR) Negative (NEGATIVE) 08/24/23 21:42 Plan (1) Pneumonia: Status: Acute Qualifiers: Pneumonia type: due to unspecified organism Laterality: unspecified laterality Lung location: unspecified part of lung Qualified Code(s): J18.9 - Pneumonia, unspecified organism (2) Thoracic aortic aneurysm (TAA): Status: Acute Qualifiers: Thoracic aorta location: ascending aorta Presence of rupture: without rupture Qualified Code(s): I71.21 - Aneurysm of the ascending aorta, without rupture (3) Compression fracture of body of thoracic vertebra: Status: Acute (4) COPD (chronic obstructive pulmonary disease): Status: Acute Qualifiers: COPD type: unspecified COPD Qualified Code(s): J44.9 - Chronic obstructive pulmonary disease, unspecified (5) Hilar lymphadenopathy: Status: Acute Plan: Referral pulmonology outpatient (6) Hypomagnesemia: Status: Acute (7) Abnormal weight loss: Status: Acute
[2023-08-26] MEDS: MAGNESIUM SULFATE 1 GRAM/100 mL PREMIX 1 G/100 ML BAG IV ONE (13:09)
[2023-08-26] MEDS ORDERED: RESTORIL CAP 15 MG PO PRN (16:14)
[2023-08-27 06:21] LABS: BASOPHILS # (AUTO) 0.1 X10^3/uL (0.0-0.1); BASOPHILS % (AUTO) 0.7 % (0.2-1.0); EOSINOPHILS # (AUTO) 0.1 x10^3/uL (0.0-0.2); EOSINOPHILS % (AUTO) 0.4 % (0.9-2.9); HEMATOCRIT 36.3 % (42.0-54.0); HEMOGLOBIN 12.2 g/dL (13.5-18.0); LYMPHOCYTES # (AUTO) 2.1 X10^3/uL (1.3-2.9); LYMPHOCYTES % (AUTO) 15.6 % (21.0-51.0); MEAN CORPUSCULAR HEMOGLOBIN 29.9 pg (27.0-34.0); MEAN CORPUSCULAR HGB CONC 33.6 g/dL (33.0-35.0); MEAN CORPUSCULAR VOLUME 88.8 fL (80.0-100.0); MEAN PLATELET VOLUME 6.3 fL (7.4-11.0); MONOCYTES # (AUTO) 1.1 x10^3/uL (0.3-0.8); MONOCYTES % (AUTO) 8.4 % (0.0-13.0); NEUTROPHILS # (AUTO) 9.9 x10^3/uL (2.2-4.8); NEUTROPHILS % (AUTO) 74.9 % (42.0-75.0); PLATELET COUNT 422 X10^3/uL (150.0-450.0); RED BLOOD COUNT 4.09 X10^6/uL (4.7-6.0); RED CELL DISTRIBUTION WIDTH 14.4 % (11.6-16.5); WHITE BLOOD COUNT 13.2 X10^3/uL (3.6-10.0)
[2023-08-27 06:34] LABS: ALANINE AMINOTRANSFERASE 36 Units/L (12-78); ALBUMIN 2.5 g/dL (3.4-5.0); ALKALINE PHOSPHATASE 66 Units/L (46-116); ASPARTATE AMINO TRANSFERASE 21 Units/L (15-37); BLOOD UREA NITROGEN 11 mg/dL (7-18); CALCIUM 8.7 mg/dL (8.5-10.1); CARBON DIOXIDE 29.2 mmol/L (21-32); CHLORIDE 99 mmol/L (98-107); COR CA(FOR HYPOALB) 9.9 mg/dL (8.5-10.1); CREATININE 0.66 mg/dL (0.70-1.30); GLUCOSE 95 mg/dL (65-99); MAGNESIUM 1.9 mg/dL (2.0-2.9); POTASSIUM 4.1 mmol/L (3.5-5.1); SODIUM 135 mmol/L (136-145); TOTAL PROTEIN 6.9 g/dL (6.4-8.2); eGFR NON BLACK RACES > 60 (>60)
--- NOTE | 2023-08-27 08:50 | RAD ---
EXAM:CHEST, 1 VIEWHISTORY:SOB; SX: ORTHOCOMPARISON:08/24/2023FINDINGS:Abnor mal opacity is present throughout the lungs. The findings are progressed and are more pronounced than previously. This could represent a progression pneumonia like described on the CTA chest 08/24/2023. No significant effusion or pneumothorax.Cardiomegaly is present.The bones are unremarkable.IMPRESSION:1. Progressed bilateral pneumonia2. Stable cardiomegalyTHIS IS AN ELECTRONICALLY VERIFIED FINAL REPORT08/27/2023 8:47 AM - Electronically signed by Ascencion Albarran MD
[2023-08-28 06:42] LABS: BASOPHILS # (AUTO) 0.1 X10^3/uL (0.0-0.1); BASOPHILS % (AUTO) 0.8 % (0.2-1.0); EOSINOPHILS % (AUTO) 0.3 % (0.9-2.9); HEMATOCRIT 37.4 % (42.0-54.0); HEMOGLOBIN 12.4 g/dL (13.5-18.0); LYMPHOCYTES # (AUTO) 2.5 X10^3/uL (1.3-2.9); LYMPHOCYTES % (AUTO) 19.1 % (21.0-51.0); MEAN CORPUSCULAR HEMOGLOBIN 29.7 pg (27.0-34.0); MEAN CORPUSCULAR HGB CONC 33.1 g/dL (33.0-35.0); MEAN CORPUSCULAR VOLUME 89.6 fL (80.0-100.0); MEAN PLATELET VOLUME 6.9 fL (7.4-11.0); MONOCYTES # (AUTO) 1.1 x10^3/uL (0.3-0.8); MONOCYTES % (AUTO) 8.5 % (0.0-13.0); NEUTROPHILS # (AUTO) 9.5 x10^3/uL (2.2-4.8); NEUTROPHILS % (AUTO) 71.3 % (42.0-75.0); PLATELET COUNT 422 X10^3/uL (150.0-450.0); RED BLOOD COUNT 4.18 X10^6/uL (4.7-6.0); RED CELL DISTRIBUTION WIDTH 14.4 % (11.6-16.5); WHITE BLOOD COUNT 13.3 X10^3/uL (3.6-10.0)
[2023-08-28 06:55] LABS: ALANINE AMINOTRANSFERASE 43 Units/L (12-78); ALBUMIN 2.6 g/dL (3.4-5.0); ALKALINE PHOSPHATASE 66 Units/L (46-116); ASPARTATE AMINO TRANSFERASE 25 Units/L (15-37); BLOOD UREA NITROGEN 11 mg/dL (7-18); CALCIUM 8.9 mg/dL (8.5-10.1); CARBON DIOXIDE 28.9 mmol/L (21-32); CHLORIDE 99 mmol/L (98-107); GLUCOSE 84 mg/dL (65-99); MAGNESIUM 1.7 mg/dL (2.0-2.9); POTASSIUM 3.7 mmol/L (3.5-5.1); SODIUM 136 mmol/L (136-145); TOTAL PROTEIN 6.9 g/dL (6.4-8.2); eGFR NON BLACK RACES > 60 (>60)
[2023-08-28 08:00] VITALS: BP 145/87; PULSE 86; RESP 18; TEMP 97.7; O2SAT 97
[2023-08-28] MEDS ORDERED: CONSULT PHARMACY - POTASSIUM & MAGNESIUM XX SCH (08:00)
[2023-08-28] MEDS: K-DUR TAB 20 MEQ PO SCH (09:00)
[2023-08-28] MEDS: MAG-OX TAB PO SCH (09:01)
--- NOTE | 2023-08-28 10:47 | PCM.PROG ---
Progress Note Progress Note for Day of Date of Exam: 08/27/23 Subjective Subjective: Patient seen at bedside, no acute events overnight. 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 He is currently on 2L NC. He reports feeling slightly better. He reports normal appetite. He has been having worsening SOB, generalized weakness and weight loss for the past 2 months. He has outpatient f/u with Rheum and GI. CT-chest done on admission is concerning for infectious process superimposed on ILD. Patient's brother also had ILD. He is currently on Levaquin and nebs. Labs/imaging reviewed: -WBC 13.2 Hgb 12.2 ESR:45 CRP:48 TB gold pending -Sputum Cx: normal tammy -AIT resp panel: negative -ECHO reviewed Plan: Wean O2 as tolerated to keep sats > 92%, continue nebs and IS. Will get RT to evaluate for home O2. Continue IV levaquin and Solmuedrol. Continue gentle hydration. Continue home medications. Replace electrolytes as per protocol. Patient was also noted to have 4cm ascending thoracic aneurysm that will need be monitored outpatient. Continue pain control for thoracic compression fracture a nd multiple joint pain including b/l hands. He will follow-up with Ortho for compression fractures of his thoracic vertebrae. There is concern for possible sarcoidosis/ILD, he will need follow-up outpatient with pulmonology. Patient's O2 sats on room air was 88% which did improve with adding 2L O2. Patient ambulated in the [place]. Patient's home O2 was being set up but it was noted that his insurance did not have coverage for O2. Patient's discharge was cancelled and patient was kept to be monitored so he can be weaned off the O2. Past Medical Family Social History Allergies: Allergies Penicillins Allergy (Verified 08/24/23 19:02) Vital Signs and I&O's Vital Signs: Vital Signs Temperature 97.7 F Temperature 97.9 F Pulse Rate [Right] 86 Pulse Rate [Right] 79 Pulse Rate 86 Respiratory Rate 18 Respiratory Rate 20 Blood Pressure [Right Arm] 145/87 Blood Pressure [Right Arm] 137/85 O2 Sat by Pulse Oximetry 97 O2 Sat by Pulse Oximetry 97 O2 Sat by Pulse Oximetry 98 Intake and Output: Intake & Output 08/25/23 08/26/23 08/27/23 08/28/23 23:59 23:59 23:59 23:59 Intake Total 8889 / 5599 3691 / 3691 3686 / 3686 504 / 504 Output Total 1200 / 1200 1050 / 1050 Balance 1529 / 1529 2641 / 2641 9136 / 1436 504 / 504 Physical Exam Oriented: Normal Eyes: Normal Ear: Normal Nose: Normal Throat: Normal Respiratory: Generalized, Rales and Rhonchi Cardiovascular: Normal Auscultation: Bowel Sounds: Normal Palpation: Normal Tenderness: Normal Skin: Normal Musculoskeletal: Normal Psychiatric: Normal Mood Description: Calm and Appropriate Affect: Normal Speech Pattern: Clear and Appropriate Laboratory and Diagnostics 08/28/23 05:40 08/28/23 05:40 Labs: 08/25/23 21:20 Sputum - Expectorated Sputum Sputum Culture - Final 08/25/23 21:20 Sputum - Expectorated Sputum - Final 08/24/23 23:05 Blood Blood Culture - Preliminary 08/24/23 23:00 Blood Blood Culture - Preliminary Laboratory WBC 13.3 X10^3/uL (3.6-10.0) H 08/28/23 05:40 RBC 4.18 X10^6/uL (4.7-6.0) L 08/28/23 05:40 Hgb 12.4 g/dL (13.5-18.0) L 08/28/23 05:40 Hct 37.4 % (42.0-54.0) L 08/28/23 05:40 MCV 89.6 fL (80.0-100.0) 08/28/23 05:40 MCH 29.7 pg (27.0-34.0) 08/28/23 05:40 MCHC 33.1 g/dL (33.0-35.0) 08/28/23 05:40 RDW 14.4 % (11.6-16.5) 08/28/23 05:40 Plt Count 422 X10^3/uL (150.0-450.0) 08/28/23 05:40 MPV 6.9 fL (7.4-11.0) L 08/28/23 05:40 Neut % (Auto) 71.3 % (42.0-75.0) 08/28/23 05:40 Lymph % (Auto) 19.1 % (21.0-51.0) L 08/28/23 05:40 Bacon % (Auto) 8.5 % (0.0-13.0) 08/28/23 05:40 Eos % (Auto) 0.3 % (0.9-2.9) L 08/28/23 05:40 Baso % (Auto) 0.8 % (0.2-1.0) 08/28/23 05:40 Neut # (Auto) 9.5 x10^3/uL (2.2-4.8) H 08/28/23 05:40 Lymph # (Auto) 2.5 X10^3/uL (1.3-2.9) 08/28/23 05:40 Bacon # (Auto) 1.1 x10^3/uL (0.3-0.8) H 08/28/23 05:40 Eos # (Auto) 0.0 x10^3/uL (0.0-0.2) 08/28/23 05:40 Baso # (Auto) 0.1 X10^3/uL (0.0-0.1) 08/28/23 05:40 Absolute Nucleated RBC 0.1 /100WBC 08/28/23 05:40 ESR 45 MM/HOUR (0-15) H 08/25/23 12:47 D-Dimer 5.23 ug/ml (0.0-0.57) H 08/24/23 19:45 Sodium 136 mmol/L (136-145) 08/28/23 05:40 Corrected Sodium TNP 08/28/23 05:40 Potassium 3.7 mmol/L (3.5-5.1) 08/28/23 05:40 Chloride 99 mmol/L (98-107) 08/28/23 05:40 Carbon Dioxide 28.9 mmol/L (21-32) 08/28/23 05:40 BUN 11 mg/dL (7-18) 08/28/23 05:40 Creatinine 0.70 mg/dL (0.70-1.30) 08/28/23 05:40 Est GFR (MDRD) Af Amer > 60 (>60) 08/28/23 05:40 Est GFR (MDRD) Non-Af > 60 (>60) 08/28/23 05:40 Glucose 84 mg/dL (65-99) 08/28/23 05:40 Uric Acid 3.6 mg/dL (3.5-7.2) 08/25/23 05:50 Calcium 8.9 mg/dL (8.5-10.1) 08/28/23 05:40 Corrected Calcium 10.0 mg/dL (8.5-10.1) 08/28/23 05:40 Magnesium 1.7 mg/dL (2.0-2.9) L 08/28/23 05:40 Total Bilirubin 0.20 mg/dL (0.2-1.0) 08/28/23 05:40 AST 25 Units/L (15-37) 08/28/23 05:40 ALT 43 Units/L (12-78) 08/28/23 05:40 Alkaline Phosphatase 66 Units/L (46-116) 08/28/23 05:40 Troponin I High Sens 4.6 ng/L (4.0-60.0) 08/25/23 12:47 C-Reactive Protein 48.80 mg/L (0-3.0) H 08/25/23 12:47 B-Natriuretic Peptide 58.7 pg/mL (0-79) 08/24/23 19:45 Total Protein 6.9 g/dL (6.4-8.2) 08/28/23 05:40 Albumin 2.6 g/dL (3.4-5.0) L 08/28/23 05:40 Globulin 4.3 g/dL (2.5-4.5) 08/28/23 05:40 Albumin/Globulin Ratio 0.6 Ratio (1.1-2.1) L 08/28/23 05:40 Angiotensin Convert Enz 50 U/L (16-85) 08/25/23 12:47 TSH 3rd Generation 1.682 uIU/mL (0.358-3.74) 08/24/23 19:45 Specimen Type Clean catch urine 08/24/23 21:16 Urine Color Yellow (YELLOW) 08/24/23 21:16 Urine Appearance Clear (CLEAR) 08/24/23 21:16 Urine pH 6.0 (5.0 - 8.0) 08/24/23 21:16 Ur Specific [place] 1.015 (1.000-1.030) 08/24/23 21:16 Urine Protein Negative (NEGATIVE) 08/24/23 21:16 Urine Glucose (UA) Negative (NEGATIVE) 08/24/23 21:16 Urine Ketones Negative (NEGATIVE) 08/24/23 21:16 Urine Blood Negative (NEGATIVE) 08/24/23 21:16 Urine Nitrite Negative (NEGATIVE) 08/24/23 21:16 Urine Bilirubin Negative (NEGATIVE) 08/24/23 21:16 Urine Urobilinogen 1+ (NORMAL) 08/24/23 21:16 Ur Leukocyte Esterase Negative (NEGATIVE) 08/24/23 21:16 Urine RBC None seen /HPF (0-3) 08/24/23 21:16 Urine WBC None seen /HPF (0-5) 08/24/23 21:16 Ur Squamous Epith Cells Rare /HPF (NEGATIVE) 08/24/23 21:16 Urine Bacteria Negative /HPF (NEGATIVE) 08/24/23 21:16 Ur Culture Indicated? No/not indicated 08/24/23 21:16 SARS-CoV-2 (PCR) Negative (NEGATIVE) 08/24/23 21:42 Influenza Type A (PCR) Negative (NEGATIVE) 08/24/23 21:42 Influenza Type B (PCR) Negative (NEGATIVE) 08/24/23 21:42 RSV (PCR) Negative (NEGATIVE) 08/24/23 21:42 Resp Viral Panel (PCR) See scanned report 08/25/23 00:53 Plan (1) Pneumonia: Status: Acute Qualifiers: Laterality: unspecified laterality Lung location: unspecified part of lung Pneumonia type: due to unspecified organism Qualified Code(s): J18.9 - Pneumonia, unspecified organism (2) Thoracic aortic aneurysm (TAA): Status: Acute Qualifiers: Presence of rupture: without rupture Thoracic aorta location: ascending aorta Qualified Code(s): I71.21 - Aneurysm of the ascending aorta, without rupture (3) Compression fracture of body of thoracic vertebra: Status: Acute (4) COPD (chronic obstructive pulmonary disease): Status: Acute Qualifiers: COPD type: unspecified COPD Qualified Code(s): J44.9 - Chronic obstructive pulmonary disease, unspecified (5) Hilar lymphadenopathy: Status: Acute (6) Hypomagnesemia: Status: Acute (7) Abnormal weight loss: Status: Acute
--- NOTE | 2023-09-02 11:04 | W.DIS.FURT ---
Summary of Discharge Discharge Summary of Date Date of Exam: 08/28/23 Admission Date Date of Admission: 08/24/23 Admission Diagnosis Patient Problems (Updated 08/26/23 @ 11:38 by Mary Boo) Pneumonia (Acute) J18.9 Cough, persistent (Acute) R05.3 Chest wall pain (Acute) R07.89 Abnormal weight loss (Acute) R63.4 Thoracic aortic aneurysm (TAA) (Acute) I71.20 Joint pain (Acute) M25.50 Hospital Course: Mr Vyas is a 58-year-old male presenting with cough and shortness of breath that has been getting worse over the past week. He reports that for the over a month he has been battling cough and was treated before for pneumonia. He has also had a lot of joint pain, swelling and weight loss. ER work up showed elevated WBC and d-dimer. COVID/FLU/RSV were negative. CXR did not show any acute findings. CTA chest showed Borderline cardiomegaly with four-chamber enlargement.2. Approximately 4 cm fusiform aneurysmal dilatation of the ascending tthoracic aorta; no aortic dissection or rupture is seen. . Extensive bilateral patchy groundglass lung parenchymal infiltrates, especially in the peripheral lung zones and lower lung collins, in keeping with acute pneumonia (e.g. COVID- pneumonia) in the appropriate clinical setting; consider mild CHF in the appropriate clinical setting; nonspecific finding; see DDx above. 4. Mediastinal and hilar lymphadenopathy, in keeping with reactive lymphadenopathy; DDx includes granulomatous lymphadenopathy (e.g advanced stage sarcoidosis in the setting of extensive chronic interstitial infiltrates or fibrosis). 5. Chronic appearing mild anterior wedge compression fracture deformity of the T6 vertebral body and chronic appearing severe anterior wedge compression fracture of the T11 vertebral body. Patient was admitted for pneumonia and COPD exacerbation. He was started on IV antibiotics, fluids and bronchodilators. He was initially on 2-3L NC O2. His labs were monitored daily and electrolytes replaced as needed. He did have elevated CRP and ESR. He was also started on IV steroids. Patient was feeling better, ambulating in the room. His respiratory symptoms improved. He was weaned off O2. His echo was normal. Quantiferon TB and PATRICE levels were pending. Patient will f/u with PCP, Rheum and pulmonary outpatient. He will also need Cardio and outpatient follow up. He was stable for discharge on PO antibiotics and steroids. Vital Signs: Vital Signs (72 hours) 08/25/23 11:57 08/25/23 15:51 08/25/23 15:53 Temperature 98.5 F 98.2 F Pulse Rate Pulse Rate [Right] 100 H 109 H Respiratory Rate 20 20 20 Blood Pressure [Right Arm] 126/81 142/84 O2 Sat by Pulse Oximetry 91 L 93 L Oxygen Delivery Method Room Air Room Air Oxygen Flow Rate FIO2% 08/25/23 16:51 08/25/23 19:38 08/25/23 20:36 Temperature 98.5 F Pulse Rate Pulse Rate [Right] 96 H Respiratory Rate 18 20 18 Blood Pressure [Right Arm] 135/83 O2 Sat by Pulse Oximetry 94 L Oxygen Delivery Method Room Air Oxygen Flow Rate FIO2% 08/25/23 23:09 08/25/23 19:00 08/25/23 21:36 Temperature Pulse Rate Pulse Rate [Right] Respiratory Rate 18 18 Blood Pressure [Right Arm] O2 Sat by Pulse Oximetry Oxygen Delivery Method Nasal Cannula Oxygen Flow Rate 2 FIO2% 08/25/23 23:34 08/26/23 00:09 08/25/23 21:00 Temperature 99.8 F H Pulse Rate Pulse Rate [Right] 96 H Respiratory Rate 20 18 Blood Pressure [Right Arm] 139/82 O2 Sat by Pulse Oximetry 97 Oxygen Delivery Method Room Air Nasal Cannula Oxygen Flow Rate 2 FIO2% 28 08/25/23 21:00 08/26/23 00:10 08/26/23 04:00 Temperature Pulse Rate 110 H 92 H Pulse Rate [Right] Respiratory Rate 18 Blood Pressure [Right Arm] O2 Sat by Pulse Oximetry 96 96 Oxygen Delivery Method Oxygen Flow Rate FIO2% 08/26/23 04:00 08/26/23 05:00 08/26/23 05:25 Temperature 98.7 F Pulse Rate 82 Pulse Rate [Right] 73 Respiratory Rate 20 18 Blood Pressure [Right Arm] 136/89 O2 Sat by Pulse Oximetry 100 99 Oxygen Delivery Method Room Air Oxygen Flow Rate FIO2% 08/26/23 09:13 08/26/23 09:13 08/26/23 07:00 Temperature Pulse Rate 90 Pulse Rate [Right] Respiratory Rate Blood Pressure [Right Arm] O2 Sat by Pulse Oximetry 99 Oxygen Delivery Method Nasal Cannula Nasal Cannula Oxygen Flow Rate 2 2 FIO2% 28 08/26/23 08:00 08/26/23 12:00 08/26/23 16:00 Temperature 97.9 F 98.4 F 97.1 F L Pulse Rate Pulse Rate [Right] 92 H 92 H 86 Respiratory Rate 20 20 18 Blood Pressure [Right Arm] 123/80 131/87 133/88 O2 Sat by Pulse Oximetry 100 96 99 Oxygen Delivery Method Room Air Room Air Room Air Oxygen Flow Rate FIO2% 08/26/23 19:00 08/26/23 20:11 08/26/23 20:11 Temperature Pulse Rate 85 Pulse Rate [Right] Respiratory Rate Blood Pressure [Right Arm] O2 Sat by Pulse Oximetry 99 Oxygen Delivery Method Nasal Cannula Nasal Cannula Oxygen Flow Rate 2 2 FIO2% 28 08/26/23 20:00 08/26/23 23:53 08/27/23 04:00 Temperature 97.9 F 98.0 F 97.9 F Pulse Rate Pulse Rate [Right] 100 H 91 H 81 Respiratory Rate 21 19 18 Blood Pressure [Right Arm] 123/79 130/77 130/72 O2 Sat by Pulse Oximetry 100 95 97 Oxygen Delivery Method Room Air Room Air Room Air Oxygen Flow Rate FIO2% 08/27/23 06:13 08/27/23 09:12 08/27/23 08:48 Temperature Pulse Rate 76 76 Pulse Rate [Right] Respiratory Rate Blood Pressure [Right Arm] O2 Sat by Pulse Oximetry 96 97 Oxygen Delivery Method Nasal Cannula Oxygen Flow Rate 2 FIO2% 97 08/27/23 08:00 08/27/23 07:00 08/27/23 13:00 Temperature 97.6 F Pulse Rate 83 Pulse Rate [Right] 82 Respiratory Rate 20 Blood Pressure [Right Arm] 128/72 O2 Sat by Pulse Oximetry 98 93 L Oxygen Delivery Method Room Air Nasal Cannula Oxygen Flow Rate 2 FIO2% 08/27/23 12:00 08/27/23 16:00 08/27/23 19:00 Temperature 98.4 F 98.5 F Pulse Rate Pulse Rate [Right] 101 H 95 H Respiratory Rate 22 20 Blood Pressure [Right Arm] 132/83 133/82 O2 Sat by Pulse Oximetry 98 97 Oxygen Delivery Method Room Air Room Air Nasal Cannula Oxygen Flow Rate 2 FIO2% 08/27/23 20:00 08/27/23 20:00 08/27/23 20:00 Temperature 97.9 F Pulse Rate 96 H Pulse Rate [Right] 100 H Respiratory Rate 20 Blood Pressure [Right Arm] 112/73 O2 Sat by Pulse Oximetry 98 96 Oxygen Delivery Method Room Air Room Air Oxygen Flow Rate FIO2% 08/28/23 00:00 08/28/23 04:00 08/28/23 08:00 Temperature 98.4 F 97.9 F 97.7 F Pulse Rate Pulse Rate [Right] 96 H 79 86 Respiratory Rate 20 20 18 Blood Pressure [Right Arm] 121/78 137/85 145/87 O2 Sat by Pulse Oximetry 97 98 97 Oxygen Delivery Method Room Air Room Air Room Air Oxygen Flow Rate FIO2% 08/28/23 09:04 08/28/23 09:04 Temperature Pulse Rate 86 Pulse Rate [Right] Respiratory Rate Blood Pressure [Right Arm] O2 Sat by Pulse Oximetry 97 Oxygen Delivery Method Room Air Oxygen Flow Rate FIO2% Labs: Laboratory Last Values WBC 13.3 X10^3/uL (3.6-10.0) H 08/28/23 05:40 RBC 4.18 X10^6/uL (4.7-6.0) L 08/28/23 05:40 Hgb 12.4 g/dL (13.5-18.0) L 08/28/23 05:40 Hct 37.4 % (42.0-54.0) L 08/28/23 05:40 MCV 89.6 fL (80.0-100.0) 08/28/23 05:40 MCH 29.7 pg (27.0-34.0) 08/28/23 05:40 MCHC 33.1 g/dL (33.0-35.0) 08/28/23 05:40 RDW 14.4 % (11.6-16.5) 08/28/23 05:40 Plt Count 422 X10^3/uL (150.0-450.0) 08/28/23 05:40 MPV 6.9 fL (7.4-11.0) L 08/28/23 05:40 Neut % (Auto) 71.3 % (42.0-75.0) 08/28/23 05:40 Lymph % (Auto) 19.1 % (21.0-51.0) L 08/28/23 05:40 [place] % (Auto) 8.5 % (0.0-13.0) 08/28/23 05:40 Eos % (Auto) 0.3 % (0.9-2.9) L 08/28/23 05:40 Baso % (Auto) 0.8 % (0.2-1.0) 08/28/23 05:40 Neut # (Auto) 9.5 x10^3/uL (2.2-4.8) H 08/28/23 05:40 Lymph # (Auto) 2.5 X10^3/uL (1.3-2.9) 08/28/23 05:40 [place] # (Auto) 1.1 x10^3/uL (0.3-0.8) H 08/28/23 05:40 Eos # (Auto) 0.0 x10^3/uL (0.0-0.2) 08/28/23 05:40 Baso # (Auto) 0.1 X10^3/uL (0.0-0.1) 08/28/23 05:40 Absolute Nucleated RBC 0.1 /100WBC 08/28/23 05:40 ESR 45 MM/HOUR (0-15) H 08/25/23 12:47 D-Dimer 5.23 ug/ml (0.0-0.57) H 08/24/23 19:45 Sodium 136 mmol/L (136-145) 08/28/23 05:40 Corrected Sodium TNP 08/28/23 05:40 Potassium 3.7 mmol/L (3.5-5.1) 08/28/23 05:40 Chloride 99 mmol/L (98-107) 08/28/23 05:40 Carbon Dioxide 28.9 mmol/L (21-32) 08/28/23 05:40 BUN 11 mg/dL (7-18) 08/28/23 05:40 Creatinine 0.70 mg/dL (0.70-1.30) 08/28/23 05:40 Est GFR (MDRD) Af Amer > 60 (>60) 08/28/23 05:40 Est GFR (MDRD) Non-Af > 60 (>60) 08/28/23 05:40 Glucose 84 mg/dL (65-99) 08/28/23 05:40 Uric Acid 3.6 mg/dL (3.5-7.2) 08/25/23 05:50 Calcium 8.9 mg/dL (8.5-10.1) 08/28/23 05:40 Corrected Calcium 10.0 mg/dL (8.5-10.1) 08/28/23 05:40 Magnesium 1.7 mg/dL (2.0-2.9) L 08/28/23 05:40 Total Bilirubin 0.20 mg/dL (0.2-1.0) 08/28/23 05:40 AST 25 Units/L (15-37) 08/28/23 05:40 ALT 43 Units/L (12-78) 08/28/23 05:40 Alkaline Phosphatase 66 Units/L (46-116) 08/28/23 05:40 Troponin I High Sens 4.6 ng/L (4.0-60.0) 08/25/23 12:47 C-Reactive Protein 48.80 mg/L (0-3.0) H 08/25/23 12:47 B-Natriuretic Peptide 58.7 pg/mL (0-79) 08/24/23 19:45 Total Protein 6.9 g/dL (6.4-8.2) 08/28/23 05:40 Albumin 2.6 g/dL (3.4-5.0) L 08/28/23 05:40 Globulin 4.3 g/dL (2.5-4.5) 08/28/23 05:40 Albumin/Globulin Ratio 0.6 Ratio (1.1-2.1) L 08/28/23 05:40 Angiotensin Convert Enz 50 U/L (16-85) 08/25/23 12:47 TSH 3rd Generation 1.682 uIU/mL (0.358-3.74) 08/24/23 19:45 Specimen Type Clean catch urine 08/24/23 21:16 Urine Color Yellow (YELLOW) 08/24/23 21:16 Urine Appearance Clear (CLEAR) 08/24/23 21:16 Urine pH 6.0 (5.0 - 8.0) 08/24/23 21:16 Ur Specific [place] 1.015 (1.000-1.030) 08/24/23 21:16 Urine Protein Negative (NEGATIVE) 08/24/23 21:16 Urine Glucose (UA) Negative (NEGATIVE) 08/24/23 21:16 Urine Ketones Negative (NEGATIVE) 08/24/23 21:16 Urine Blood Negative (NEGATIVE) 08/24/23 21:16 Urine Nitrite Negative (NEGATIVE) 08/24/23 21:16 Urine Bilirubin Negative (NEGATIVE) 08/24/23 21:16 Urine Urobilinogen 1+ (NORMAL) 08/24/23 21:16 Ur Leukocyte Esterase Negative (NEGATIVE) 08/24/23 21:16 Urine RBC None seen /HPF (0-3) 08/24/23 21:16 Urine WBC None seen /HPF (0-5) 08/24/23 21:16 Ur Squamous Epith Cells Rare /HPF (NEGATIVE) 08/24/23 21:16 Urine Bacteria Negative /HPF (NEGATIVE) 08/24/23 21:16 Ur Culture Indicated? No/not indicated 08/24/23 21:16 SARS-CoV-2 (PCR) Negative (NEGATIVE) 08/24/23 21:42 Influenza Type A (PCR) Negative (NEGATIVE) 08/24/23 21:42 Influenza Type B (PCR) Negative (NEGATIVE) 08/24/23 21:42 RSV (PCR) Negative (NEGATIVE) 08/24/23 21:42 Resp Viral Panel (PCR) See scanned report 08/25/23 00:53 Reason For Visit: PNEUMONIA, PERSISTENT COUGH, CHEST WALL PAIN Discharge Diagnosis All Active Problems (Updated 08/26/23 @ 11:38 by Mary Boo) Hypomagnesemia (Acute) Hilar lymphadenopathy (Acute) COPD (chronic obstructive pulmonary disease) (Acute) Compression fracture of body of thoracic vertebra (Acute) Pneumonia (Acute) Cough, persistent (Acute) Chest wall pain (Acute) Abnormal weight loss (Acute) Thoracic aortic aneurysm (TAA) (Acute) Joint pain (Acute) Plan of Treatment: Continue with present treatment and follow up plan. Pt is to keep follow up appointment as instructed and take medications as ordered. Discharge Medications Discharge Medications: Penicillins Allergy (Verified 08/24/23 19:02) CONTINUE taking the following medications albuterol sulfate 2.5 mg/3 mL (0.083 %) solution for nebulization 2.5 mg Q4H PRN 08/24/23 [History] diclofenac sodium 75 mg tablet,delayed release 75 mg PO BID PRN 08/24/23 [History] gabapentin 100 mg capsule 100 mg PO BID 08/24/23 [History] ipratropium bromide 0.02 % solution for inhalation 2.5 ml Q6H PRN 08/24/23 [History] New Prescriptions benzonatate 100 mg capsule 100 mg PO TID PRN cough 7 days #14 caps 08/27/23 [Rx] levofloxacin 750 mg tablet 750 mg PO QDAY 7 days #7 tabs 08/27/23 [Rx] prednisone 20 mg tablet 20 mg PO BID 5 days #10 tabs 08/27/23 [Rx] budesonide 0.5 mg/2 mL suspension for nebulization 0.25 mg inhalation BID 15 days #60 mL 08/28/23 [Rx] ipratropium 0.5 mg-albuterol 3 mg (2.5 mg base)/3 mL nebulization soln 3 ml inhalation QID PRN shortness of breath or wheezing #180 mL 08/28/23 [Rx] Discharge Disposition Discharge Disposition: home Discharge Condition: stable Discharge Plan Discharge Plan Hospital Course: Mr Vyas is a 58-year-old male presenting with cough and shortness of breath that has been getting worse over the past week. He reports that for the over a month he has been battling cough and was treated before for pneumonia. He has also had a lot of joint pain, swelling and weight loss. ER work up showed elev ated WBC and d-dimer. COVID/FLU/RSV were negative. CXR did not show any acute findings. CTA chest showed Borderline cardiomegaly with four-chamber enlargement.2. Approximately 4 cm fusiform aneurysmal dilatation of the ascending tthoracic aorta; no aortic dissection or rupture is seen. . Extensive bilateral patchy groundglass lung parenchymal infiltrates, especially in the peripheral lung zones and lower lung collins, in keeping with acute pneumonia (e.g. COVID- pneumonia) in the appropriate clinical setting; consider mild CHF in the appropriate clinical setting; nonspecific finding; see DDx above. 4. Mediastinal and hilar lymphadenopathy, in keeping with reactive lymphadenopathy; DDx includes granulomatous lymphadenopathy (e.g advanced stage sarcoidosis in the setting of extensive chronic interstitial infiltrates or fibrosis). 5. Chronic appearing mild anterior wedge compression fracture deformity of the T6 vertebral body and chronic appearing severe anterior wedge compression fracture of the T11 vertebral body. Patient was admitted for pneumonia and COPD exacerbation. He was started on IV antibiotics, fluids and bronchodilators. He was initially on 2-3L NC O2. His labs were monitored daily and electrolytes replaced as needed. He did have elevated CRP and ESR. He was also started on IV steroids. Patient was feeling better, ambulating in the room. His respiratory symptoms improved. He was weaned off O2. His echo was normal. Quantiferon TB and PATRICE levels were pending. Patient will f/u with PCP, Rheum and pulmonary outpatient. He will also need Cardio and outpatient follow up. He was stable for discharge on PO antibiotics and steroids. Patient Disposition: 01 HOME, SELF-CARE Condition: Stable Health Concerns: Post Hospitalization: new medications and changes needed to prevent readmission or further decline. Pt educated and given instructions on all concerns. Care Plan Goals: Problem: Pain/Alteration in Comfort Goal: Improve/ Resolve Pain; Achieve Pain Tolerance Instructions: Take pain medications as prescribed. Contact your primary care provider if your pain is unrelieved or worsens. Follow up with primary care provider as directed. Plan of Treatment: Continue with present treatment and follow up plan. Pt is to keep follow up appointment as instructed and take medications as ordered. Prescription drug monitoring program results: PDMP reviewed and no concerns identified Prescriptions: New levofloxacin 750 mg tablet 750 mg PO QDAY 7 Days Qty: 7 0RF benzonatate 100 mg capsule 100 mg PO TID PRN (Reason: cough) 7 Days Qty: 14 0RF ipratropium-albuterol 0.5 mg-3 mg(2.5 mg base)/3 mL solution for nebulization 3 ml inhalation QID PRN (Reason: shortness of breath or wheezing) Qty: 180 0RF budesonide 0.5 mg/2 mL suspension for nebulization 0.25 mg inhalation BID 15 Days Qty: 60 0RF hydrocodone-chlorpheniramine 10-8 mg/5 mL suspension,extended rel 12 hr 5 ml PO Q12H MDD 10 mL PRN (Reason: cough) 7 Days Qty: 115 0RF Continued diclofenac sodium 75 mg tablet,delayed release (DR/EC) 75 mg PO BID PRN albuterol sulfate 2.5 mg /3 mL (0.083 %) solution for nebulization 2.5 mg Q4H PRN gabapentin 100 mg capsule 100 mg PO BID ipratropium bromide 0.02 % solution 2.5 ml Q6H PRN Instructions Instructions: Chronic Cough, Cough, Adult, [id number], Cough, Adult, Community-Acquired Pneumonia, Adult, [id number] Stand Alone Forms: Excuse From Work or School, Post Hospital Follow Up Care
== END 2023-08-28 12:05 | disposition home or self-care (01) | DRG 194 ==
LOC: ER 18:39 → MED/SURG 18:39 → OBSVTOIN 23:47 → MED/SURG 08-25 00:05
PROVIDERS: ADMIT Family Medicine; ATTEND Family Medicine
DX: E86.0 Dehydration; R59.0 Localized enlarged lymph nodes; R06.02 Shortness of breath; R70.0 Elevated erythrocyte sedimentation rate; Z65.8 Other specified problems related to psychosocial circumstances; J18.8 Other pneumonia, unspecified organism; I71.21 Aneurysm of the ascending aorta, without rupture; Z20.822 Contact with and (suspected) exposure to COVID-19; E83.42 Hypomagnesemia; X58.XXXA Exposure to other specified factors, initial encounter; J44.1 Chronic obstructive pulmonary disease with (acute) exacerbation; I71.20 Thoracic aortic aneurysm, without rupture, unspecified; R53.1 Weakness; R63.4 Abnormal weight loss; M25.50 Pain in unspecified joint; S22.000A Wedge compression fracture of unspecified thoracic vertebra, initial encounter for closed fracture; Z68.20 Body mass index [BMI] 20.0-20.9, adult; R79.82 Elevated C-reactive protein (CRP)